=== PATIENT | male | born 1955 | race African-American/Black ===

== ENCOUNTER 2018-11-29 08:39 | Emergency (ER) | payer BC, OTHER ==
[2018-11-29] MEDS ORDERED: SPIRONOLACTONE 25 MG TABLET PO ONE (09:22)
--- NOTE | 2018-11-29 09:28 | ER Document Report ---
ED ENT - General Chief Complaint: Nose Bleed Stated Complaint: NOSE BLEED Time Seen by Provider: 11/29/18 09:16 TRAVEL OUTSIDE OF THE [place] IN LAST 30 DAYS: No - HPI Notes: Patient is a 63-year-old male that presents to the emergency department for chief complaint of left nares epistaxis. Bleeding began at 730 this morning. He denies injury or trauma. He states he was up getting ready for work when it started bleeding. He is on Xarelto to prophylax against all [place] embolism. He denies history of PE. He denies any nosebleed in the last 30 years. He is not currently having any pain. Patient d oes report a history of hypertension and has been trying to find a new primary care provider. He has not had his Spironolactone and has been taking his labetalol every other day to try and make the medication last longer. He denies headache, vision changes, numbness, weakness, chest pain, abdominal pain, nausea/vomiting and recent illness. Past Medical History: Prostate cancer, hypertension Past Surgical History: Prostatectomy Social History: Denies drugs alcohol and tobacco Family History: Reviewed and noncontributory for presenting illness Allergies: Reviewed, see documented allergy list. REVIEW OF SYSTEMS: CONSTITUTIONAL : No fever No chills No diaphoresis No recent illness EENT: Epistaxis No vision changes No congestion No sore throat CARDIOVASCULAR: No chest pain No palpitations RESPIRATORY: No shortness of breath No cough No difficulty breathing GASTROINTESTINAL: No abdominal pain No nausea No vomiting No diarrhea GENITOURINARY: No dysuria No hematuria No difficulty urinating MUSCULOSKELETAL: No back pain No leg pain No arm pain SKIN: No rashes No lesions LYMPHATIC: No swollen, enlarged glands. NEUROLOGICAL: No lightheadedness No headache No weakness No paresthesias PSYCHIATRIC: No anxiety No depression PHYSICAL EXAMINATION: Vital signs reviewed, nursing noted reviewed. GENERAL: Well-appearing, well-nourished and in no acute distress. HEAD: Atraumatic, normocephalic. EYES: Eyes appear normal, extraocular movements intact, sclera anicteric, conjunctiva are normal. ENT: No nasal septal or facial bone tenderness, dry blood around left nares with no active bleeding, nares patent, no nasal septal excoriation or source of bleeding. Oropharynx clear without exudates. No blood in oropharynx. Moist mucous membranes. NECK: Normal range of motion, supple without lymphadenopathy LUNGS: Breath sounds clear to auscultation bilaterally and equal. No wheezes rales or rhonchi. HEART: Regular rate and rhythm without murmurs ABDOMEN: Soft, nontender, normoactive bowel sounds. No rebound, guarding, or rigidity. No masses appreciated. EXTREMITIES: Nontender, good range of motion, no pitting or edema. NEUROLOGICAL: No focal neurological deficits. Moves all extremities spontaneously Motor and sensory grossly intact on exam. PSYCH: Normal mood, normal affect. SKIN: Warm, Dry, normal turgor, no rashes or lesions noted on exposed skin - Related Data Allergies/Adverse Reactions: No Known Allergies Allergy (Unverified 11/29/18 09:14) Past Medical History - Social History Smoking Status: Never Smoker Family History: Reviewed & Not Pertinent - Past Medical History Cardiac Medical History: Reports: Hx Hypertension - Immunizations Hx Diphtheria, Pertussis, Tetanus Vaccination: Yes - 2011 Physical Exam - Vital signs Vitals: Temp 98 F 11/29/18 08:39 Course - Re-evaluation Re-evalutation: 11/29/18 09:25 Vitals reviewed. Nursing notes reviewed. Patient was given TXA, Afrin, and an ice pack by EMS prior to arrival. He also was hypertensive and reportedly was given 2.2 mg of clonidine. Patient currently is asymptomatic with no active bleeding. He will be given a dose of the Spironolactone which she is prescribed but has not had. He will be monitored rebleeding. 11/29/18 10:12 Patient reevaluated and had no recurrence of his nosebleed. He was counseled on holding direct pressure if bleeding returns. Patient will be referred to primary care for close follow-up. He is stable at discharge. - Vital Signs Vital signs: Temp Pulse Resp BP Pulse Ox 98 F 12 100 11/29/18 08:39 11/29/18 09:00 11/29/18 09:00 Discharge - Discharge Clinical Impression: Epistaxis Hypertension Qualifiers: Hypertension type: unspecified Qualified Code(s): I10 - Essential (primary) hypertension Condition: Stable Disposition: HOME, SELF-CARE Instructions: Family Physicians / Practices, High Blood Pressure, Requiring Treatment ([facility]), Nosebleed Instructions ([facility]) Additional Instructions: Please return to the emergency department if you have any worsening, or concern of your symptoms. Please return to the emergency department if you develop chest pain, difficulty breathing, severe abdominal pain, or ongoing vomiting. Please follow-up with your primary care physician in 2-3 days and any other recommended physicians. If prescribed, take all medications as directed. If you have any questions or concerns do not hesitate to return the emergency department for evaluation. Try not to touch her nose. If her nose begins to bleed again hold direct pressure as shown while in the emergency room for 10 minutes without letting go. If the bleeding persists despite direct pressure return to the emergency room for further management. Prescriptions: Spironolactone [Aldactone 25 mg Tablet] 25 mg PO DAILY #30 tablet Referrals: CHASE BRUNO MD [Primary Care Provider] - Follow up as needed [facility] [Provider Group] - Follow up in 3-5 days
[2018-11-29 10:13] VITALS: BP 123/92
== END 2018-11-29 10:13 | disposition home or self-care (01) ==
LOC: ER 08:39
DX: R04.0 Epistaxis (principal); Z79.01 Long term (current) use of anticoagulants; I10 Essential (primary) hypertension; T50.0X6A Underdosing of mineralocorticoids and their antagonists, initial encounter; T44.8X6A Underdosing of centrally-acting and adrenergic-neuron-blocking agents, initial encounter; Z91.128 Patient's intentional underdosing of medication regimen for other reason; Z85.46 Personal history of malignant neoplasm of prostate
CPT/HCPCS: 99283

== ENCOUNTER 2019-01-09 22:45 | Emergency (ER) | payer BC ==
[2019-01-09] MEDS ORDERED: NORMAL SALINE 1000 ML 1,000 ML IV ONE (23:49)
[2019-01-09] MEDS ORDERED: ONDANSETRON HCL INJ/PF 4 MG/2 ML SDV IV ONE (23:56)
[2019-01-10 00:01] LABS: APPEARANCE,URINE CLEAR; BILIRUBIN,URINE NEGATIVE (NEGATIVE); COLOR,URINE YELLOW; GLUCOSE, URINE NEGATIVE (NEGATIVE); KETONES,URINE NEGATIVE (NEGATIVE); LEUKOCYTE ESTERASE,URINE NEGATIVE (NEGATIVE); NITRITE,URINE NEGATIVE (NEGATIVE); PROTEIN,URINE NEGATIVE (NEGATIVE); URINE SPECIFIC GRAVITY 1.023; UROBILINOGEN,URINE NEGATIVE mg/dL (<2.0)
[2019-01-10 00:11] LABS: ALANINE AMINOTRANSFERASE 20 U/L (21-72); ALBUMIN 4.7 g/dL (3.5-5.0); ALKALINE PHOSPHATASE 118 U/L (38-126); ANION GAP 11 (5-19); ASPARTATE AMINO TRANSFERASE 36 U/L (17-59); BILIRUBIN,DIRECT 0.3 mg/dL (0.0-0.4); BILIRUBIN,TOTAL 0.6 mg/dL (0.2-1.3); BLOOD UREA NITROGEN 22 mg/dL (7-20); CALCIUM 9.4 mg/dL (8.4-10.2); CARBON DIOXIDE 26 mmol/L (22-30); CHLORIDE 105 mmol/L (98-107); GLUCOSE 157 mg/dL (75-110); LIPASE 59.8 U/L (23-300); POTASSIUM 4.8 mmol/L (3.6-5.0); SODIUM 141.7 mmol/L (137-145); TOTAL PROTEIN 7.8 g/dL (6.3-8.2)
[2019-01-10 00:22] LABS: HEMATOCRIT 49.2 % (37.9-51.0); HEMOGLOBIN 16.4 g/dL (13.5-17.0); MEAN CORPUSCULAR HEMOGLOBIN 27.3 pg (27.0-33.4); MEAN CORPUSCULAR HGB CONC 33.4 g/dL (32.0-36.0); MEAN CORPUSCULAR VOLUME 82 fl (80-97); PLATELET COUNT 300 10^3/uL (150-450); RED BLOOD COUNT 6.01 10^6/uL (4.35-5.55); RED CELL DISTRIBUTION WIDTH 13.2 % (11.5-14.0); WHITE BLOOD COUNT 10.9 10^3/uL (4.0-10.5)
[2019-01-10 00:28] LABS: ABSOLUTE LYMPHOCYTES# (MANUAL) 0.5 10^3/uL (0.5-4.7); ABSOLUTE MONOCYTES # (MANUAL) 0.7 10^3/uL (0.1-1.4); ABSOLUTE NEUTROPHILS# (MANUAL) 9.7 10^3/uL (1.7-8.2); BASOPHILS % (MANUAL) 0 % (0-2); EOSINOPHILS % (MANUAL) 0 % (0-6); HYPOCHROMASIA 2+; LYMPHOCYTES % (MANUAL) 5 % (13-45); MONOCYTES % (MANUAL) 6 % (3-13); PLATELET COMMENT ADEQUATE; SEGMENTED NEUTROPHILS % (MAN) 89 % (42-78); TOTAL CELLS COUNTED 100
--- NOTE | 2019-01-10 00:52 | ER Document Report ---
ED General - General Chief Complaint: Nausea/Vomiting Stated Complaint: FEVER Time Seen by Provider: 01/09/19 23:48 TRAVEL OUTSIDE OF THE [place] IN LAST 30 DAYS: No - HPI Patient complains to provider of: Nausea vomiting fever Notes: Patient coming in for evaluation of fever nausea vomiting. Patient states he did not take steps today but did break out into a sweat. Patient states he did have episodes of nausea and vomiting. Patient upon my evaluation states feeling okay at the moment. Patient states no Tylenol no Motrin no recent antibiotics no pain in his chest or pain in his abdomen. Patient denies any sick contacts. A brief review of the patient's past medical records available in [facility] was performed - Related Data Allergies/Adverse Reactions: No Known Allergies Allergy (Verified 01/09/19 22:46) Past Medical History - Social History Smoking Status: Never Smoker Family History: Reviewed & Not Pertinent Patient has suicidal ideation: No Patient has homicidal ideation: No - Past Medical History Cardiac Medical History: Reports: Hx Hypertension Endocrine Medical History: Reports: Hx Diabetes Mellitus Type 2 Renal/ Medical History: Denies: Hx Peritoneal Dialysis Past Surgical History: Reports: Hx Urinary Tract Surgery - prostate CA - Immunizations Hx Diphtheria, Pertussis, Tetanus Vaccination: Yes - 2011 Review of Systems - Review of Systems Constitutional: No symptoms reported EENT: No symptoms reported Cardiovascular: No symptoms reported Respiratory: No symptoms reported Genitourinary: No symptoms reported Male Genitourinary: No symptoms reported Musculoskeletal: No symptoms reported Skin: No symptoms reported Hematologic/Lymphatic: No symptoms reported Neurological/Psychological: No symptoms reported Physical Exam - Vital signs Vitals: Temp Pulse Resp BP Pulse Ox 98.5 F 68 18 150/69 H 99 01/09/19 22:54 01/09/19 22:54 01/09/19 22:54 01/09/19 22:54 01/09/19 22:54 Interpretation: Normal - General General appearance: Appears well, Alert - HEENT Head: Normocephalic, Atraumatic Eyes: Normal Pupils: PERRL - Respiratory Respiratory status: No respiratory distress Chest status: Nontender Breath sounds: Normal Chest palpation: Normal - Cardiovascular Rhythm: Regular Heart sounds: Normal auscultation Murmur: No - Abdominal Inspection: Normal Distension: No distension Bowel sounds: Normal Tenderness: Nontender Organomegaly: No organomegaly - Back Back: Normal, Nontender - Extremities General upper extremity: Normal inspection, Nontender, Normal color, Normal ROM, Normal temperature General lower extremity: Normal inspection, Nontender, Normal color, Normal ROM, Normal temperature, Normal weight bearing. No: Alicia's sign - Neurological Neuro grossly intact: Yes Cognition: Normal Orientation: AAOx4 Martina Coma Scale Eye Opening: Spontaneous [place] Coma Scale Verbal: Oriented [place] Coma Scale Motor: Obeys Commands Martina Coma Scale Total: 15 Speech: Normal Motor strength normal: LUE, RUE, LLE, RLE Sensory: Normal - Psychological Associated symptoms: Normal affect, Normal mood - Skin Skin Temperature: Warm Skin Moisture: Dry Skin Color: Normal Course - Re-evaluation Re-evalutation: 01/10/19 00:51 The patient presents with nausea vomiting possible fever without signs of peritonitis or other life-threatening or serious etiology. The patient appears stable for discharge and has been instructed to return immediately if the symptoms worsen in any way, or in 8-12hr if not improved for re-evaluation. The patient has been instructed to return if the symptoms worsen or change in any way. Patient remained afebrile here. Patient will tolerate p.o. Patient will be discharged home anti-medic medication told to return to ER if symptoms worsen. - Vital Signs Vital signs: Temp Pulse Resp BP Pulse Ox 98.5 F 70 18 150/69 H 99 01/09/19 22:54 01/09/19 22:55 01/09/19 22:54 01/09/19 22:54 01/09/19 22:54 - Laboratory Result Diagrams: 01/09/19 23:36 01/09/19 23:36 Laboratory results interpreted by me: 01/09/19 01/09/19 23:36 23:36 WBC 10.9 H RBC 6.01 H Seg Neuts % (Manual) 89 H Lymphocytes % (Manual) 5 L Abs Neuts (Manual) 9.7 H BUN 22 H Creatinine 1.47 H Est GFR ( Amer) 59 L Est GFR (Non-Af Amer) 49 L Glucose 157 H ALT 20 L Discharge - Discharge Clinical Impression: Subjective fever, Nausea & vomiting Instructions: Vomiting ([facility]), Abdominal Pain ([facility]) Additional Instructions: Your evaluation today does not show any critical pathology for your nausea vomiting. I would highly recommend you follow-up with your primary care physician take Tylenol Motrin for any pain or fever. Please take Zofran as needed for nausea vomiting. Your symptoms are likely due to a virus. However, it is important that you continue to monitor for any concerning symptoms including inability to tolerate oral fluids, less than 2 urinations in a 24 hour period, and lethargy Please continue to offer oral solutions such as Pedialyte, water, gatorade. It is okay if you do not want to eat over the next several days but it is important that they continue to drink fluids. You may also provide a medication such as ibuprofen (Motrin) or acetaminophen (Tylenol) per box instructions for fever. Please also follow-up with your doctor in the next several days. Please take the medications given to you as prescribed. Prescriptions: Ondansetron [Zofran Odt 4 mg Tablet] 1 - 2 tab PO Q4H PRN #30 tab.rapdis PRN Reason: For Nausea/Vomiting Forms: Return to Work
[2019-01-10 01:44] VITALS: BP 124/62
== END 2019-01-10 01:44 | disposition home or self-care (01) ==
LOC: ER 22:45
DX: R50.9 Fever, unspecified (principal); R11.2 Nausea with vomiting, unspecified; I10 Essential (primary) hypertension; E11.9 Type 2 diabetes mellitus without complications; Z85.46 Personal history of malignant neoplasm of prostate
CPT/HCPCS: 99284; 96361; 96374; 36415; 83690; 85025; 80053; 81001; J2405; J7030

== ENCOUNTER 2020-09-13 09:15 | Emergency (ER) | payer BC ==
--- NOTE | 2020-09-13 10:54 | ER Document Report ---
ED Extremity Problem, Upper - General Chief Complaint: Arm Pain Stated Complaint: LEFT ARM PAIN Time Seen by Provider: 09/13/20 09:32 Primary Care Provider: ABDIAS PANTOJA PA-C [Primary Care Provider] - Follow up as needed Mode of Arrival: Ambulatory Information source: Patient TRAVEL OUTSIDE OF THE [place] IN LAST 30 DAYS: No - HPI Notes: Patient states he has got left arm pain that he has had for several weeks. He states last night it was very bad he was unable to sleep. He states his pain is in the medial aspect of his arm starts at his elbow and runs down into his wrist. He also states that his little finger and fourth finger are numb and that he has some altered sensation to the medial aspect of his left hand. He st ates the pain does radiate from the elbow down to the wrist. It is moderate to severe. Is constant and burning. It is worse with movement and better with rest. He denies any other injuries. No chest pain or shortness of breath. - Related Data Allergies/Adverse Reactions: No Known Allergies Allergy (Verified 09/13/20 09:35) Past Medical History - General Information source: Patient - Social History Smoking Status: Former Smoker Frequency of alcohol use: None Drug Abuse: None Family History: Reviewed & Not Pertinent Patient has homicidal ideation: No - Past Medical History Cardiac Medical History: Reports: Hx Hypertension Endocrine Medical History: Reports: Hx Diabetes Mellitus Type 2 Renal/ Medical History: Denies: Hx Peritoneal Dialysis Past Surgical History: Reports: Hx Urinary Tract Surgery - prostate CA - Immunizations Hx Diphtheria, Pertussis, Tetanus Vaccination: Yes - 2011 Review of Systems - Review of Systems Constitutional: denies: Chills, Fever Cardiovascular: denies: Chest pain, Palpitations Respiratory: denies: Cough, Short of breath -: Yes All other systems reviewed and negative Physical Exam - Vital signs Vitals: Temp Pulse Resp BP Pulse Ox 98.9 F 63 18 187/98 H 96 09/13/20 09:31 09/13/20 09:31 09/13/20 09:31 09/13/20 09:31 09/13/20 09:31 Interpretation: Hypertensive - General General appearance: Appears well, Alert - HEENT Head: Normocephalic, Atraumatic Eyes: Normal Pupils: PERRL - Respiratory Respiratory status: No respiratory distress Chest status: Nontender Breath sounds: Normal Chest palpation: Normal - Cardiovascular Rhythm: Regular Heart sounds: Normal auscultation Murmur: No - Abdominal Inspection: Normal Distension: No distension Bowel sounds: Normal Tenderness: Nontender Organomegaly: No organomegaly - Back Back: Normal, Nontender - Extremities General upper extremity: Normal inspection, Normal color, Normal temperature, Other - Left elbow is tender especially in the medial aspect along the course of the ulnar nerve. Exam appears consistent with some ulnar nerve entrapment mainly at the level of the medial aspect of the elbow. General lower extremity: Normal inspection, Nontender, Normal color, Normal ROM, Normal temperature, Normal weight bearing. No: Alicia's sign - Neurological Neuro grossly intact: Yes Cognition: Normal Orientation: AAOx4 Martina Coma Scale Eye Opening: Spontaneous [place] Coma Scale Verbal: Oriented [place] Coma Scale Motor: Obeys Commands Martina Coma Scale Total: 15 Speech: Normal Motor strength normal: LUE, RUE, LLE, RLE Sensory: Normal - Psychological Associated symptoms: Normal affect, Normal mood - Skin Skin Temperature: Warm Skin Moisture: Dry Skin Color: Normal Course - Vital Signs Vital signs: Temp Pulse Resp BP Pulse Ox 98.9 F 63 18 187/98 H 96 09/13/20 09:31 09/13/20 09:31 09/13/20 09:31 09/13/20 09:31 09/13/20 09:31 - EKG Interpretation by Me Rate: Normal - 70 Rhythm: NSR, APC's [place]/QRS: No: Right axis deviation, Left axis deviation Procedures - Immobilization Left Elbow Time completed: 10:53 Pre-Proc Neuro Vasc Exam: Normal Immobilizer type: Sling Performed by: RN Post-Proc Neuro Vasc Exam: Normal Alignment checked and good: Yes Discharge - Discharge 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
[2020-09-13 11:19] VITALS: BP 147/93
--- NOTE | 2020-09-13 19:44 | EKG REPORT ---
SEVERITY:- ABNORMAL ECG - SINUS RHYTHM WITH PACS ABNRM R PROG, CONSIDER ASMI OR LEAD PLACEMENT : Confirmed by: Mitch Baez MD 13-Sep-2020 19:43:34
== END 2020-09-13 11:17 | disposition home or self-care (01) ==
LOC: ER 09:15
DX: G56.22 Lesion of ulnar nerve, left upper limb (principal); I49.1 Atrial premature depolarization; I10 Essential (primary) hypertension; E11.9 Type 2 diabetes mellitus without complications; Z87.891 Personal history of nicotine dependence
CPT/HCPCS: 93005; 93010; 99284

== ENCOUNTER 2020-09-21 15:04 | Emergency (ER) | payer BC ==
--- OUTSIDE RECORDS SUMMARY | 2020-09-21 17:32 | XMS REPORT ---
:1955 Author Organization [facility] Address [facility] [address] [place] [address] Care Team Providers Name Role Phone Paulina Attending Clinician Unavailable Allergies, Adverse Reactions, Alerts This patient has no known allergies or adverse reactions. Medications Ordered Filled Start Stop Current Ordering Indication Dosage Frequency Signature Comments Components Medication Medication Date Date Medication? Clinician (SIG) Name Name amlodipine No 1 Q1D amlodipine 10 mg 10 mg tablet Take tablet 1 tablet Take 1 every day tablet by oral every day route for by oral 90 days. route for 90 days. diltiazem No 1capsul Q1D diltiazem ER 420 mg e(s) ER 420 mg capsule,24 capsule,24 hr,extended hr,extende release d release Take 1 Take 1 capsule capsule every day every day by oral by oral route for route for 90 days. 90 days. hydrocodone No 1 Q5H hydrocodon 5 e 5 mg-acetamin mg-acetami ophen 325 nophen 325 mg tablet mg tablet Take 1 Take 1 tablet tablet every 4-6 every 4-6 hours by hours by oral route oral route for 3 days. for 3 days. labetalol No 1 BID labetalol 300 mg 300 mg tablet Take tablet 1 tablet Take 1 twice a day tablet by oral twice a route for day by 90 days. oral route for 90 days. metformin No 1 BID metformin 1,000 mg 1,000 mg tablet Take tablet 1 tablet Take 1 twice a day tablet by oral twice a route for day by 30 days. oral route for 30 days. Problems Condition Condition Condition Status Onset Resolution Last Treatin g Comments Name Details Category Date Date Treatment Clinician Date Diabetes Diabetes Problem Active 2019-11 mellitus Mellitus 11-16 00:00: 00 Hypertensiv Hypertensiv Problem Active 2019-11 e disorder e Disorder 11-16 00:00: 00 Elbow joint Elbow Joint Problem Active 2019-11 pain Pain 11-16 00:00: 00 History of History of Problem Active 2019-11 malignant Malignant 11-16 neoplasm of Neoplasm of 00:00: prostate Prostate 00 Pain of Pain of Problem Active 2019-11 right elbow Right Elbow 11-16 joint Joint 00:00: 00 Peritoneal Peritoneal Problem Active 2019-11 dialysis Dialysis 11-16 00:00: 00 Procedures Procedure Date / Time Performed Performing Clinician Miguel lowery RADIOLOGIC EXAM ELBOW 3 VIEWS 2020-09-16 00:00:00 electromyogram + nerve conduction 2020-09-16 00:00:00 study OFFICE/OUTPATIENT VISIT NEW 2019-02-28 14:30:00 Prostatectomy 2013-08-12 00:00:00 Results Test Description Test Time Test Comments Text Results Atomic Results Result Comments CBC (INCLUDES DIFF/PLT) 2019-02-28 15:33:00 Test Item Value Reference Range Comments ABSOLUTE MONOCYTES (test code = 54622557) 377 cells/uL 200-95 0 ABSOLUTE BASOPHILS (test code = 01937734) 51 cells/uL 0-200 ABSOLUTE LYMPHOCYTES (test code = 22895100) 33997148 cells/uL 85 0-3900 HEMATOCRIT (test code = 54534914) 46.2 % 38.5-50.0 ABSOLUTE EOSINOPHILS (test code = 51493021) 61 cells/uL 15-5 00 MONOCYTES (test code = 32735073) 7.4 % PLATELET COUNT (test code = 13231801) 438 Thousand/uL 140-400 ABSOLUTE NEUTROPHILS (test code = 95755939) 3264 cells/uL 1500 -7800 HEMOGLOBIN (test code = 28930730) 15.4 g/dL 13.2-17.1 RED BLOOD CELL COUNT (test code = 26035243) 5.73 Million/uL 4.20 -5.80 MCH (test code = 35046841) 26.9 pg 27.0-33.0 EOSINOPHILS (test code = 04928823) 1.21.2 % MCHC (test code = 80803837) 33.3 g/dL 32.0-36.0 RDW (test code = 07579682) 13.0 % 11.0-15.0 MCV (test code = 96701146) 80.6 fL 80.0-100.0 NEUTROPHILS (test code = 11197807) 64 % WHITE BLOOD CELL COUNT (test code = 30133283) 5.1 Thousand/uL 3. 8-10.8 BASOPHILS (test code = 54393093) 1.0 % LYMPHOCYTES (test code = 52682302) 26.4 % MPV (test code = 52072350) 9.8 fL 7.5-12.5 HEMOGLOBIN [id number] 15:33:[id number] 15:33:001.281.281.28 COMPREHENSIVE METABOLIC [id number] 15:33:00 Test Item Value Reference Range Comments PROTEIN, TOTAL (test code = 42718619) 7.5 g/dL 6.1-8.1 BILIRUBIN, TOTAL (test code = 01190882) 0.5 mg/dL 0.2-1.2 eGFR NON-AFR. TONGAN (test code = 47 mL/min/1.73m2 > OR = 60 69241595) BUN/CREATININE RATIO (test code = 02228985) 11 (calc) 6-22 CREATININE (test code = 30960847) 1.56 mg/dL 0.70-1.25 eGFR (test code = 54 mL/min/1.73m2 > OR = 60 92607826) CHLORIDE (test code = 92084722) 105 mmol/L 98-110 AST (test code = 29649395) 17 U/L 10-35 SODIUM (test code = 66992069) 357031 mmol/L 135-146 ALBUMIN (test code = 93717864) 4.7 g/dL 3.6-5.1 UREA NITROGEN (BUN) (test code = 24112232) 17 mg/dL 7-25 POTASSIUM (test code = 08571268) 4.2 mmol/L 3.5-5.3 GLOBULIN (test code = 90100852) 2.8 g/dL (calc) 1.9-3.7 ALT (test code = 56343700) 19 U/L 9-46 ALBUMIN/GLOBULIN RATIO (test code = 1.7 (calc) 1.0-2.5 11603634) ALKALINE PHOSPHATASE (test code = 51952220) 109 U/L 40-1 15 GLUCOSE (test code = 99540184) 119 mg/dL 65-99 CARBON DIOXIDE (test code = 38593926) 26 mmol/L 20-32 CALCIUM (test code = 08359394) 10.110.1 mg/dL 8.6-10.3 [id number] 15:33:001.91.9PHOSPHATE ( PHOSPHORUS)2019-02-28 15:33:00 3.73.7MICROALBUMIN, RANDOM URINE (W/CREATININE)2019-02-28 15:33:00 Test Item Value Reference Range Comments CREATININE, RANDOM URINE (test code = 079619 mg/dL 20-320 55398499) MICROALBUMIN/CREATININE RATIO, RANDOM URINE 21 mcg/mg creat <30 (test code = 09157358) MICROALBUMIN (test code = 65293033) 5.4 mg/dL Assessments Condition Name Status Diagnosis Date Treating Clinici an Pain of left elbow joint Active 2020-09-16 10:45:57 Ulnar neuropathy Active 2020-09-16 10:59:22 Type 2 diabetes mellitus without Active complications Essential (primary) hypertension Active Chronic atrial fibrillation Active Presence of spectacles and contact Active lenses Encounters Start End Encounter Admission Attending Care Care Encounter Date/Time Date/Time Type Type Clinicians Facility Department ID 2020-09-16 2020-09-16 Flavio Warren [id number] 00:00:00 00:00:00 [facility] [id number] DO: [address] [place] [address], Ph. 2019-10-17 2019-10-17 Outpatient Laura Dobson [id number] 08:15:06 08:15:06 2019-02-28 2019-02-28 Outpatient Aneesh [facility] B6 [id number] 14:30:00 14:30:00 [facility] [id number] [facility], Payers Payer Name Policy Type Policy Number Effective Date Expiration D ate [facility] [id number] 2002 00:00:00 Social History Smoking Status Start Date Stop Date Never Smoker Vital Signs Vital Name Observation Time Observation Value Comments Height 2020-09-16 00:00:00 71 [in_i] BMI (Body Mass Index) 2020-09-16 00:00:00 28.2 kg/m2 Body Weight 2020-09-16 00:00:00 202 [lb_av] Hospital Discharge Instructions 1. Pain of left elbow joint XR, elbow 2. Ulnar neuropathy electromyogram + nerve conduction study - Left Upper Extremity Discussion Note: None recorded. Patient educational handouts: No information available.
[2020-09-21] MEDS ORDERED: KETOROLAC TROMETHAMINE 60 MG/2 ML SDV IM ONE (18:10)
--- NOTE | 2020-09-21 18:51 | RADIOLOGY REPORT (SQ) ---
EXAM DESCRIPTION: SHOULDER LEFT 2 OR MORE VIEWS IMAGES COMPLETED DATE/TIME: 09/21/2020 5:24 pm REASON FOR STUDY: pain. COMPARISON: None. NUMBER OF VIEWS: Three views. TECHNIQUE: Internal rotation, external rotation, and Y view images acquired of the left shoulder. LIMITATIONS: None. FINDINGS: MINERALIZATION: Normal. BONES: No acute fracture or cortical disruption. Normal contour of the humeral head. Normal glenohu meral joint space alignment. Mild osteoarthritis at the acromioclavicular joint. JOINTS: No dislocation. VISUALIZED LUNGS AND RIBS: No pneumothorax. No rib fracture. SOFT TISSUES: No radiopaque foreign body. OTHER: No other significant finding. IMPRESSION: Mild osteoarthritis at the acromioclavicular joint. No acute fracture or dislocation of the left shoulder. TECHNICAL DOCUMENTATION: JOB ID: [id number] 2010 [employer]- All Rights Reserved Reading location - IP/workstation name: [email or web address]
--- NOTE | 2020-09-21 19:26 | ER Document Report ---
HPI - HPI Patient complains to provider of: left shoulder pain Time Seen by Provider: 09/21/20 17:06 Pain Level: 4 Context: 64-year-old male presents to the emergency room complaining of persistent left shoulder pain for the past week. States it radiates down to his hand. Complains of intermittent numbness and tingling. States he was seen here a week ago had a negative cardiac work-up. Was referred to orthopedics states was unable to be seen and was referred back to his primary care physician. He denies any acute trauma or injury. Patient is right-handed. States pain is worse when he tries to raise his left arm over his head. Was given hydrocodone at his last visit which she states has been helpful with his pain. He denies any previous trauma or injury to his shoulder or arm. He denies any generalized weakness. Associated Symptoms: None Exacerbated by: Movement Relieved by: Denies Similar symptoms previously: Yes - Intermittent for the past week Recently seen / treated by doctor: No - ROS Systems Reviewed and Negative: Yes All other systems reviewed and negative - NEURO Neurology: DENIES: Headache, Weakness - CARDIOVASCULAR Cardiovascular: DENIES: Chest pain - RESPIRATORY Respiratory: DENIES: Trouble Breathing - REPRODUCTIVE Reproductive: REPORTS: : - MUSCULOSKELETAL Musculoskeletal: REPORTS: Extremity pain. DENIES: Back Pain, Neck Pain - DERM Skin Color: Normal, [place] Skin Problems: None Past Medical History - General Information source: Patient - Social History Smoking Status: Never Smoker Frequency of alcohol use: None Drug Abuse: None Family History: Reviewed & Not Pertinent Patient has homicidal ideation: No - Past Medical History Cardiac Medical History: Reports: Hx Hypertension Endocrine Medical History: Reports: Hx Diabetes Mellitus Type 2 Renal/ Medical History: Denies: Hx Peritoneal Dialysis Past Surgical History: Reports: Hx Urinary Tract Surgery - prostate CA - Immunizations Hx Diphtheria, Pertussis, Tetanus Vaccination: Yes - 2011 Vertical Provider Document - CONSTITUTIONAL Agree With Documented VS: Yes Exam Limitations: No Limitations General Appearance: Mild Distress - INFECTION CONTROL TRAVEL OUTSIDE OF THE [place] IN LAST 30 DAYS: No - HEENT HEENT: Atraumatic, Normocephalic - NECK Neck: Normal Inspection, Supple - RESPIRATORY Respiratory: Breath Sounds Normal, No Respiratory Distress, Chest Non-Tender - CARDIOVASCULAR Cardiovascular: Regular Rate, Regular Rhythm - BACK Back: Normal Inspection - MUSCULOSKELETAL/EXTREMETIES Musculoskeletal/Extremeties: Tender - Tenderness on palpation to the left AC joint and painful range of motion with abduction and adduction to the left shoulder. [employer] strength is equal and adequate bilaterally. - NEURO Level of Consciousness: Awake, Alert, Appropriate Motor/Sensory: No Motor Deficit, No Sensory Deficit Notes: Positive left radial pulse. Neurovascularly intact. - DERM Integumentary: Warm, Dry Course - Re-evaluation Re-evalutation: 09/21/20 19:21 Patient is resting comfortably with decreased pain. X-ray results were reviewed with the patient. He was counseled on the importance to follow-up outpatient with orthopedics as well as his primary care physician as discussed. Voltaren gel as directed. Patient is aware that is an [id number] medication. Patient was given strict return to the emergency room guidelines. Return for any new or worsening symptoms. All questions were answered. Patient verbalized understanding and agrees with plan of care. 09/21/20 23:26 - Vital Signs Vital signs: Temp Pulse Resp BP Pulse Ox 97.4 F 60 16 151/83 H 100 09/21/20 15:07 09/21/20 15:07 09/21/20 15:07 09/21/20 15:07 09/21/20 15:07 - Diagnostic Test Radiology reviewed: Reports reviewed Discharge - Discharge Clinical Impression: Osteoarthritis of left acromioclavicular joint Condition: Stable Disposition: HOME, SELF-CARE Instructions: Osteoarthritis ([facility]) Additional Instructions: Use the Voltaren gel as directed it is ejbi-szy-sfwwfko medication. Follow-up with orthopedics as discussed as well as your primary care physician. Return to the emergency room for any new or worsening symptoms. Referrals: ABDIAS PANTOJA PA-C [Primary Care Provider] - Follow up as needed SALOMÓN HESTER JR, DO [ACTIVE PROVISIONAL STAFF] - Follow up as needed
[2020-09-21 19:33] VITALS: BP 148/78
== END 2020-09-21 19:33 | disposition home or self-care (01) ==
LOC: ER 15:04
DX: M19.012 Primary osteoarthritis, left shoulder (principal); R20.2 Paresthesia of skin; I10 Essential (primary) hypertension; E11.9 Type 2 diabetes mellitus without complications; Z85.46 Personal history of malignant neoplasm of prostate
CPT/HCPCS: 99284; 96372; 73030; J1885